=== PATIENT | female | born 1935 | race Caucasian/White ===

== ENCOUNTER 2017-01-26 12:45 | Emergency (ER) | payer MEDICARE, BC ==
--- NOTE | 2017-01-26 12:51 | EDM.PDOC ---
ED HPI GENERAL MEDICAL PROBLEM - General Chief Complaint: Lower Extremity Injury/Pain Stated Complaint: hip pain Time Seen by Provider: 01/26/17 12:51 Source of Information: Reports: Patient - History of Present Illness INITIAL COMMENTS - FREE TEXT/NARRATIVE: 81 YO WF presents to ER with right hip pain which began this am after waking. Pt reports she has no discomfort with sitting or standing but with movement has pain to right hip. Pt denies any back pain, denies any weakness or numbness. Pt denies any history of arthritis or hip pain. Onset: Today Onset Date: 01/26/17 Onset Time: 08:00 Duration: Day(s): (1) Location: Reports: Lower Extremity, Right Severity: Mild Improves with: Reports: Rest Worsens with: Reports: Movement Associated Symptoms: Reports: No Other Symptoms Right Hip Pain Score (Numeric/FACES): 10 - Related Data Allergies Allergy/AdvReac Type Severity Reaction Status Date / Time No Known Allergies Allergy Verified 01/26/17 13:27 Home Meds: Home Meds Hydrocodone/Acetaminophen [Hydrocodon-Acetaminophen 5-325] 1 each PO Q6HR PRN # 15 tablet 01/26/17 [Rx] Ibuprofen [Motrin] 600 mg PO Q6H #20 tablet 01/26/17 [Rx] Review of Systems - Review of Systems Review Of Systems: See Below Constitutional: Reports: No Symptoms Ears: Reports: No Symptoms Nose: Reports: No Symptoms Mouth/Throat: Reports: No Symptoms Respiratory: Reports: No Symptoms Cardiovascular: Reports: No Symptoms GI/Abdominal: Reports: No Symptoms Genitourinary: Reports: No Symptoms Musculoskeletal: Reports: Leg Pain (right hip) Skin: Reports: No Symptoms Neurological: Reports: No Symptoms Psychiatric: Reports: No Symptoms ED EXAM, GENERAL - Physical Exam Exam: See Below Exam Limited By: No Limitations General Appearance: Alert, WD/WN, No Apparent Distress Ears: Normal External Exam, Normal Canal, Hearing Grossly Normal, Normal TMs Ear Exam: Bilateral Ear: Auricle Normal, Canal Normal, TM normal Nose: Normal Inspection, Normal Mucosa, No Blood Throat/Mouth: Normal Inspection, Normal Lips, Normal Teeth, Normal Gums, Normal Oropharynx, Normal Voice, No Airway Compromise Head: Atraumatic, Normocephalic Neck: Normal Inspection, Supple, Non-Tender, Full Range of Motion Respiratory/Chest: No Respiratory Distress, Lungs Clear, Normal Breath Sounds, No Accessory Muscle Use, Chest Non-Tender Cardiovascular: Normal Peripheral Pulses, Regular Rate, Rhythm, No Edema, No Gallop, No JVD, No Murmur, No Rub GI/Abdominal: Normal Bowel Sounds, Soft, Non-Tender, No Organomegaly, No Distention, No Abnormal Bruit, No Mass Back Exam: Normal Inspection, Full Range of Motion, NT Extremities: Leg Pain (right hip pain) Neurological: Alert, Oriented, CN II-XII Intact, Normal Cognition, Normal Gait, Normal Reflexes, No Motor/Sensory Deficits Psychiatric: Normal Affect, Normal Mood Skin Exam: Warm, Dry, Intact, Normal Color, No Rash Lymphatic: No Adenopathy Course - Vital Signs Last Recorded V/S: Last Vital Signs Temp 36.3 C 01/26/17 13:29 Pulse 79 01/26/17 13:29 Resp 16 01/26/17 13:29 BP 110/66 01/26/17 13:29 Pulse Ox 96 01/26/17 13:29 - Orders/Labs/Meds Orders: Active Orders 24 hr Category Date Time Status Hip Min 2V or 3V Rt [CR] Stat Exams 01/26/17 13:08 Taken Meds: Medications Discontinued Medications Generic Name Dose Route Start Last Admin Trade Name Freq PRN Reason Stop Dose Admin Ketorolac Tromethamine 60 mg 01/26/17 13:08 Toradol IM 01/26/17 13:09 ONETIME ONE - Radiology Interpretation Free Text/Narrative:: right hip- NAD Departure - Departure Time of Disposition: 13:23 Disposition: Home, Self-Care 01 Condition: Good Clinical Impression: Hip pain, acute Qualifiers: Laterality: right Qualified Code(s): M25.551 - Pain in right hip Tinea pedis Qualifiers: Laterality: right Qualified Code(s): B35.3 - Tinea pedis - Discharge Information Prescriptions: Hydrocodone/Acetaminophen [Hydrocodon-Acetaminophen 5-325] 1 each PO Q6HR PRN # 15 tablet PRN Reason: Pain Ibuprofen [Motrin] 600 mg PO Q6H #20 tablet Instructions: Hip Pain, Athlete's Foot Referrals: Nathan Winston MD [Primary Care Provider] - - My Orders Last 24 Hours: My Active Orders 01/26/17 13:08 Hip Min 2V or 3V Rt [CR] Stat - Assessment/Plan Last 24 Hours: My Active Orders 01/26/17 13:08 Hip Min 2V or 3V Rt [CR] Stat Assessment:: 1. Hip pain 2. tinea pedis Plan: 1. motrin/hydrocodone for pain 2. follow up at [facility] for further management 3. return to ER for worsening symptoms 4. nystatin cream TID
[2017-01-26] MEDS ORDERED: Ketorolac 60 MG/2 ML SDV IM ONE (13:08)
[2017-01-26 13:39] VITALS: BP 110/66
[2017-01-26] MEDS ORDERED: Nystatin Ointment 15 GM Tube TOP SCH (15:00)
== END 2017-01-26 14:05 | disposition home or self-care (01) ==
LOC: KA.ED 12:45
DX: M25.551 Pain in right hip (principal); B35.3 Tinea pedis
CPT/HCPCS: 73502; 96372; 99283; J1885; A9270-GY